=== PATIENT | female | born 1965 | race Caucasian/White ===

== ENCOUNTER 2019-01-13 11:28 | Inpatient (IN) | payer OTHER ==
[2019-01-13] VITALS (12 sets, daily range): BP systolic 100–122; BP diastolic 61–77
[~2019-01-13] VITALS: Ht 160 cm; Wt 88.1 kg
[~2019-01-13 11:28] MED LIST: ALYACEN1 EAC1 PO; CENTRUM SILVER1 EAC4 PO; NEURONTIN300 MG PO; RANITIDINE HCL300 MG PO; ZOLOFT100 MG PO
[2019-01-13] MEDS ORDERED: BREO ELLIPTA 11 EACH INH ×2 (11:47→18:11)
[2019-01-13 12:19] LABS: CALCIUM 7.9 mg/dL (8.5-10.1); CREATININE 0.6 mg/dL (0.6-1.0); POTASSIUM 3.3 mmol/L (3.5-5.1)
[2019-01-13 12:25] LABS: ALBUMIN 2.9 g/dL (3.4-5.0); TOTAL BILIRUBIN 0.4 mg/dL (<0.1-1.0)
[2019-01-13] MEDS ORDERED: MELATONIN5 M4 PO (18:08)
[2019-01-13] MEDS ORDERED: SPIRONOLACTONE50 MG PO (18:09)
--- NOTE | 2019-01-13 18:24 | NUR ---
Patient arrived from surgery approx. 1720 to [address] [place] [facility] room 356. Patient in stable condition/VSS with no complaints besides pain of an 8 on a 1-10 scale. Scheduled pain meds given. Patient starting slowly on diet ordered. Dr. Milvia busch for nausea medication. Orders given for PRN reglan and zofran. Family at bedside.
[2019-01-13 18:36] LABS: ABSOLUTE NEUTROPHILS 13.2 thou/uL (1.4-8.2); BASOPHILS 0.3 % (0.0-2.0); EOSINOPHILS 0.5 % (0.0-3.0); HEMATOCRIT 43.3 % (37.0-47.0); HEMOGLOBIN 14.4 gm/dL (12.0-15.0); LYMPHOCYTES 9.4 % (24.0-44.0); MCH 29.8 pg (26.0-34.0); MCHC 33.3 g/dL (28.0-37.0); MCV 89.2 fL (80.0-100.0); MONOCYTES 2.5 % (1.0-8.0); POLYS 87.3 % (36.0-66.0); RBC 4.85 mil/uL (4.20-5.00); RDW 13.8 % (10.5-14.5); WBC 15.1 thou/uL (4.0-11.0)
[2019-01-13 18:49] LABS: INR 1.1; PROTIME 11.4 Seconds (9.3-11.4)
[2019-01-13 19:08] LABS: PLATELET COUNT 250 thou/uL (150-400)
[2019-01-14 00:27] VITALS: BP 102/59
[2019-01-14 04:02] VITALS: BP 101/61
[2019-01-14 08:15] VITALS: BP 99/62
[2019-01-14] MEDS ORDERED: IBUPROFEN 200200 M1 PO (12:03)
[2019-01-14] MEDS ORDERED: COLACE 100 MG100 MG PO (12:03)
[2019-01-14] MEDS ORDERED: OXYCODONE HCL 55 MG PO (12:03)
[2019-01-14] MEDS ORDERED: ACETAMINOPHEN325 M1 PO (12:03)
[2019-01-14] MEDS ORDERED: MIRALAX17 GM PO (12:04)
[2019-01-14 12:57] VITALS: BP 99/62
[2019-01-14 13:56] VITALS: BP 99/62
--- NOTE | 2019-01-14 13:57 | NUR ---
Assumed care approx. 0700 this AM. Patient averaging pain from 3-7 on pain scale throughout shift. IV dilaudid given once when PO oxycodone wasn't due yet. Discharge orders obtained by Dr. Steel. Prescription for Oxycodone IR administered to patient. Activity and medication education for pain control discussed with patient. IV discontinued. Patient taken by wheelchair with nursing staff to car to be picked up by parents approx. 1345. Discharge packet, script info, and all belongings with patient.
--- NOTE | 2019-01-15 16:06 | PATH ---
[facility] [address] [place] [address] PATHOLOGY RPT PROCEDURE Name: GRACIE GARDNER Room #: 356-P [facility] M.R.#: [id number] Admission: 01/13/19 Date of : 65 Discharge: 01/14/19 Report #: [id number] Path Case #: [id number] [facility] Accession Number: [id number] . 01 Material submitted: . appendix - APPENDIX . 01 Clinical history: . Appendicitis . 02 Diagnosis: Appendix, appendectomy: - Mild acute appendicitis. - Fibrous obliteration of the tip. (IUV:telephone information clerk; 01/15/2019) MBR 01/15/2019 1214 Local . 02 Electronically signed: . Sylvie Amaya MD, Pathologist NPI- [id number] . 01 Gross description: . Received in formalin labeled "Gracie Gardner, appendix," is an appendix measuring 3.5 cm in length by 0.7 cm in diameter with a moderate amount of attached mesoappendix measuring up to 1.7 cm in thickness. The appendiceal serosa is wrinkled and robles-brown in appearance, partially covered in dusky purple-brown adhesions. The proximal margin is open; this area is inked black. Serial sectioning reveals a patent lumen at the proximal aspect of the specimen for a linear length of 1.0 cm that measures up to 0.5 cm in diameter. The remainder of the lumen is grossly pinpoint in diameter, with possible fibrous obliteration at the distal tip. An area of pink-yellow possible fat necrosis is noted in the mesoappendix adjacent to a portion of the appendix, measuring up to 0.7 cm on cut surface and extending to within 2.1 cm of the proximal margin. The proximal margin and distal tip are submitted in cassette A1. The remainder of the appendix is submitted proximal-distal in cassettes A2 and A3. The mesoappendix is retained within the specimen container. ([facility]; 01/14/2019) XDC/XDC 01/14/2019 0808 Local . 02 Pathologist provided ICD-10: K35.80 . 02 CPT . 159541 Specimen Comment: A courtesy copy of this report has been sent to Specimen Comment: [phone], [phone]. [address] [address] PATHOLOGY RPT PROCEDURE Name: GRACIE GARDNER Room #: 356-P [facility] IN M.R.#: [id number] Admission: 01/13/19 Date of : 65 Discharge: 01/14/19 Report #: [id number] Path Case #: [id number] Specimen Comment: Report sent to / DR RIGGS Performed at: [address], [place], [place] [id number] MD Alec Mesa MD Phone: [phone] Performed at: [address] [id number] MD Sylvie Amaya MD Phone: [phone]
== END 2019-01-14 13:45 | disposition home or self-care (01) | DRG 343 ==
LOC: ER 11:28 → 3W 12:43 → EROBS 12:43 → TBA 14:46 → 3W 16:58
PROVIDERS: Nurse Practitioner Family; ADMIT Surgery
PROC: 0DTJ4ZZ Resection of Appendix, Percutaneous Endoscopic Approach (ICD-10-PCS; principal; 2019-01-13)
DX: K35.80 Unspecified acute appendicitis (principal); Z80.3 Family history of malignant neoplasm of breast; Z79.899 Other long term (current) drug therapy; Z23 Encounter for immunization
CPT/HCPCS: 10080; 50010; 50101; 50249; 50411; 50555; 50558; 50739; 50740; 51489; 52265; 52266; 53307; 53310; 53312; 54022; 54118; 56525; 56526; 62110; 62900; 70005

== ENCOUNTER → 2019-08-23 | Outpatient (CLI) | payer OTHER ==
[~2019-08-23] MED LIST changes: +ACETAMINOPHEN325 M1 PO; +BREO ELLIPTA 11 EACH INH; +COLACE 100 MG100 MG PO; +IBUPROFEN 200200 M1 PO; +MELATONIN5 M4 PO; +MIRALAX17 GM PO; +OXYCODONE HCL 55 MG PO; +SPIRONOLACTONE50 MG PO
== END ==
LOC: RAD 12:53
DX: R05 Cough (principal)

== ENCOUNTER → 2020-06-01 | Outpatient (CLI) | payer OTHER | LOC: RAD 14:46 | PROVIDERS: ATTEND Internal Medicine Pulmonary Disease | DX: J68.3 Other acute and subacute respiratory conditions due to chemicals, gases, fumes and vapors (principal); K21.9 Gastro-esophageal reflux disease without esophagitis; E66.09 Other obesity due to excess calories; Z68.34 Body mass index [BMI] 34.0-34.9, adult ==